=== PATIENT | female | born 1960 | race African-American/Black ===

== ENCOUNTER 2018-01-22 12:42 | Emergency (ER) | payer MEDICARE, OTHER ==
[~2018-01-22] VITALS: Ht 157.5 cm; Wt 63.0 kg
[~2018-01-22 12:42] MED LIST: ASPITAB34 PO; BACL-63 PO; CITA-36 PO; HYDR-2551 PO; LORA-154 GT; METF-370 PO; METO25TA5 PO; NOR10T PO; OMEP20CA74 PO; POT10T PO; QUET300T14 PO; [UNRECOGNIZED DRUG - CODE] PO
[2018-01-22 12:59] VITALS: BP 117/73
== END 2018-01-22 15:19 | disposition home or self-care (01) ==
LOC: ER 12:42
DX: S00.93XA Contusion of unspecified part of head, initial encounter (principal); E11.9 Type 2 diabetes mellitus without complications; I10 Essential (primary) hypertension; Z90.710 Acquired absence of both cervix and uterus; W01.0XXA Fall on same level from slipping, tripping and stumbling without subsequent striking against object, initial encounter; Y93.89 Activity, other specified; Y92.89 Other specified places as the place of occurrence of the external cause; Y99.8 Other external cause status
CPT/HCPCS: 70450

== ENCOUNTER → 2018-04-26 | Outpatient (CLI) | payer MEDICARE, OTHER ==
[2018-04-26 08:38] LABS: Eosinophils # (auto) 0.1 uL; Eosinophils % (auto) 0.8 % (0.0-7.0); Neutrophils # (auto) 4.2 uL; White Blood Cell 7.5 10^3/uL (4.4-10.8)
[2018-04-26 08:39] LABS: Basophils # (auto) 0.1 uL; Basophils % (auto) 0.9 % (0.0-2.0); Hematocrit 38.3 % (36.0-46.0); Hemoglobin 12.3 g/dL (12.2-16.2); Lymphocytes # (auto) 2.7 uL; Lymphocytes % (auto) 36.5 % (10.0-50.0); Mean Corpuscular Hemoglobin 25.9 pg (28.0-32.0); Mean Corpuscular Hgb Conc. 32.2 g/dL (32.0-36.0); Mean Corpuscular Volume 80.4 fL (80.0-100.0); Monocytes # (auto) 0.4 uL; Monocytes % (auto) 5.8 % (0.0-12.0); Nucleated Red Blood Cells % 0.3 %; Platelet Count (auto) 330 10^3/uL (140-450); Red Blood Cells 4.76 10^6/uL (4.0-5.20); Red Cell Distribution Width 15.8 % (11.8-14.3)
[2018-04-26 09:02] LABS: Potassium 3.2 mmol/L (3.5-5.1)
[2018-04-26 09:03] LABS: Albumin 3.9 g/dL (3.4-5.0); BUN/Creatinine Ratio 15.5; Bilirubin, Total 0.2 mg/dL (0.2-1.0); Calcium 9.6 mg/dL (8.5-10.1); Total Protein 8.6 g/dL (6.4-8.2)
== END | disposition home or self-care (01) ==
LOC: LAB 08:16
PROVIDERS: ATTEND Physician Assistant
DX: I10 Essential (primary) hypertension (principal); E11.9 Type 2 diabetes mellitus without complications
CPT/HCPCS: 36415; 80053; 80061; 83036; 85025

== ENCOUNTER 2024-04-15 11:57 | Emergency (ER) | payer MEDICARE, OTHER ==
[~2024-04-15] VITALS: Ht 157.5 cm; Wt 112.0 kg
[~2024-04-15 11:57] MED LIST changes: -CITA-36 PO; +CITA40TA12 PO; -LORA-154 GT; +LORA-483 GT
[2024-04-15 12:10] VITALS: TEMP 98.2
[2024-04-15 12:11] VITALS: BP 150/73; PULSE 79; RESP 14; O2SAT 98
[2024-04-15] MEDS ORDERED: ERY05OO OP (13:39)
== END 2024-04-15 13:39 | disposition home or self-care (01) ==
LOC: ER 11:57
DX: H00.12 Chalazion right lower eyelid (principal); E11.9 Type 2 diabetes mellitus without complications; I10 Essential (primary) hypertension; Z90.710 Acquired absence of both cervix and uterus; Z88.1 Allergy status to other antibiotic agents; Z88.6 Allergy status to analgesic agent

== ENCOUNTER → 2024-10-04 | Outpatient (CLI) | payer MEDICARE, OTHER ==
[~2024-10-04] MED LIST changes: +ERY05OO OP
== END | disposition home or self-care (01) ==
LOC: LAB 16:26
PROVIDERS: ATTEND Nurse Practitioner Family
DX: N39.0 Urinary tract infection, site not specified (principal)
CPT/HCPCS: 87086